=== PATIENT | female | born 1960 | race Caucasian/White ===

== ENCOUNTER → 2016-12-21 | Outpatient (CLI) | payer MEDICARE, MEDICAID ==
[~2016-12-21] MED LIST: CELEXA 20MG20 MG/TAB PO; CLEOCIN HC150 MG/CAP PO; CLEOCIN HCL300 MG PO; DIOVAN 40MG40 MG PO; FIORICET 325 MG1 TA1 PO; LANTUS100 U/ML SC; LYRICA 75MG CAP75 MG PO; MS CONTIN 330 MG/TAB PO; NORCO 325 MG-51 TAB PO; NORCO 325 MG-7.1 TAB PO; NOVOLOG 100U100 U/M1 SQ; PROAIR HFA0.09 MG/AC; TRADJENTA5 MG PO; XANAX 0.5MG0.5 MG PO; ZOCOR 10MG10 MG; ZOFRAN 4MG T4 MG/TAB PO
== END ==
LOC: COL.RAD 12-14 14:00
DX: M25.511 Pain in right shoulder (principal)

== ENCOUNTER → 2017-05-29 | Outpatient (CLI) | payer MEDICARE, MEDICAID | LOC: MHCPAIN 14:58 | DX: G89.29 Other chronic pain (principal); M47.27 Other spondylosis with radiculopathy, lumbosacral region; M53.3 Sacrococcygeal disorders, not elsewhere classified; F17.210 Nicotine dependence, cigarettes, uncomplicated | CPT/HCPCS: G0463 ==

== ENCOUNTER → 2017-06-20 | Outpatient (CLI) | payer MEDICARE, MEDICAID | LOC: MHCPAIN 14:22 | DX: G89.29 Other chronic pain (principal); M47.27 Other spondylosis with radiculopathy, lumbosacral region; M53.3 Sacrococcygeal disorders, not elsewhere classified; F17.210 Nicotine dependence, cigarettes, uncomplicated | CPT/HCPCS: G0463 ==

== ENCOUNTER → 2017-07-16 | Outpatient (CLI) | payer MEDICARE, MEDICAID | LOC: MHCPAIN 07-12 09:12 | DX: G89.29 Other chronic pain (principal); M47.27 Other spondylosis with radiculopathy, lumbosacral region; F17.210 Nicotine dependence, cigarettes, uncomplicated | CPT/HCPCS: G0463 ==

== ENCOUNTER → 2017-08-30 | Outpatient (CLI) | payer MEDICARE, MEDICAID | LOC: MHCPAIN 10:17 | DX: M47.27 Other spondylosis with radiculopathy, lumbosacral region (principal); M51.27 Other intervertebral disc displacement, lumbosacral region | CPT/HCPCS: J1100; J2250; J3010; Q9967 ==

== ENCOUNTER → 2017-09-21 | Outpatient (CLI) | payer MEDICARE, MEDICAID | LOC: MHCPAIN 11:44 | DX: G89.29 Other chronic pain (principal); M47.817 Spondylosis without myelopathy or radiculopathy, lumbosacral region; M54.16 Radiculopathy, lumbar region; M53.3 Sacrococcygeal disorders, not elsewhere classified | CPT/HCPCS: G0463 ==

== ENCOUNTER → 2017-09-27 | Outpatient (CLI) | payer MEDICARE, MEDICAID | LOC: MHCPAIN 13:27 | DX: M47.817 Spondylosis without myelopathy or radiculopathy, lumbosacral region (principal) | CPT/HCPCS: J1040; J2250; J3010; Q9967 ==

== ENCOUNTER → 2017-10-19 | Outpatient (CLI) | payer MEDICARE, MEDICAID | LOC: MHCPAIN 11:15 | DX: G89.29 Other chronic pain (principal); M47.817 Spondylosis without myelopathy or radiculopathy, lumbosacral region; M54.16 Radiculopathy, lumbar region; M53.3 Sacrococcygeal disorders, not elsewhere classified | CPT/HCPCS: G0463 ==

== ENCOUNTER → 2017-11-19 | Outpatient (CLI) | payer MEDICARE, MEDICAID | LOC: MHCPAIN 13:02 | DX: G89.29 Other chronic pain (principal); M47.817 Spondylosis without myelopathy or radiculopathy, lumbosacral region; M54.16 Radiculopathy, lumbar region; M53.3 Sacrococcygeal disorders, not elsewhere classified | CPT/HCPCS: G0463 ==

== ENCOUNTER → 2018-01-21 | Outpatient (CLI) | payer MEDICARE, MEDICAID | LOC: MHCPAIN 12:54 | DX: G89.29 Other chronic pain (principal); M47.817 Spondylosis without myelopathy or radiculopathy, lumbosacral region; M54.16 Radiculopathy, lumbar region; M53.3 Sacrococcygeal disorders, not elsewhere classified | CPT/HCPCS: G0463 ==

== ENCOUNTER → 2018-03-20 | Outpatient (CLI) | payer MEDICARE, MEDICAID | LOC: MHCPAIN 12:58 | DX: G89.29 Other chronic pain (principal); M47.817 Spondylosis without myelopathy or radiculopathy, lumbosacral region; M54.16 Radiculopathy, lumbar region; M53.3 Sacrococcygeal disorders, not elsewhere classified | CPT/HCPCS: G0463 ==

== ENCOUNTER → 2018-03-28 | Outpatient (CLI) | payer MEDICARE, MEDICAID | LOC: MHCPAIN 14:08 | DX: M54.16 Radiculopathy, lumbar region (principal); M47.817 Spondylosis without myelopathy or radiculopathy, lumbosacral region | CPT/HCPCS: J1040; J2250; J3010; Q9967 ==

== ENCOUNTER → 2018-05-07 | Outpatient (CLI) | payer MEDICARE, MEDICAID | LOC: MHCPAIN 13:14 | DX: G89.29 Other chronic pain (principal); M47.817 Spondylosis without myelopathy or radiculopathy, lumbosacral region; M54.16 Radiculopathy, lumbar region; M53.3 Sacrococcygeal disorders, not elsewhere classified | CPT/HCPCS: G0463 ==

== ENCOUNTER 2020-03-05 08:53 | Inpatient (IN) | payer MEDICARE, MEDICAID ==
[~2020-03-05] VITALS: Ht 172.7 cm; Wt 108.0 kg
[~2020-03-05 08:53] MED LIST changes: -NOVOLOG 100U100 U/M1 SQ; +NOVOLOG FLEX100 U/ML SQ
[2020-04-20] VITALS (12 sets, daily range): BP systolic 107–164; BP diastolic 52–79; PULSE 59–669; TEMP 97–100.2
[2020-04-20] MEDS ORDERED: BROVANA15 MCG/2 M IH (02:29)
[2020-04-20] MEDS ORDERED: LIORESAL 1010 MG/TAB PO (02:29)
[2020-04-20] MEDS ORDERED: PULMICORT R1 MG/2 ML IH (02:30)
[2020-04-20] MEDS ORDERED: CELEBREX 200MG200 MG PO (02:30)
[2020-04-20] MEDS ORDERED: CRESTOR 10MG10 MG PO (02:31)
[2020-04-20] MEDS ORDERED: DALIRESP500 MCG PO (02:32)
[2020-04-20] MEDS ORDERED: VALIUM 10MG10 MG/TAB PO (02:32)
[2020-04-20] MEDS ORDERED: DIOVAN 80MG80 MG PO (02:33)
[2020-04-20] MEDS ORDERED: FIORINAL W/CODE1 CA2 PO (02:34)
[2020-04-20] MEDS ORDERED: JARDIANCE25 PO (02:35)
[2020-04-20] MEDS ORDERED: TOPROL XL 25MG25 MG PO (02:36)
[2020-04-20] MEDS ORDERED: NORCO 325 MG-101 TAB PO (02:37)
[2020-04-20] MEDS ORDERED: TRESIBA FL200 UNIT/1 SQ (02:40)
[2020-04-20] MEDS ORDERED: DESYREL 100MG100 MG PO (02:40)
[2020-04-20] MEDS ORDERED: VASCEPA0.5 GM PO (02:42)
[2020-04-20] MEDS ORDERED: VENTOLIN0.09 MG IH (02:43)
[2020-04-20] MEDS ORDERED: B-12 500 MCG PO (02:44)
[2020-04-20] MEDS ORDERED: FIORICET 325 MG1 TA1 PO (02:46)
[2020-04-20] MEDS ORDERED: TYLENOL 325MG325 MG PO (02:52)
[2020-04-20] MEDS ORDERED: NOVOLOG FLEX100 U/ML SQ (05:59)
[2020-04-20] MEDS ORDERED: IRON TABLETS325 MG PO (06:05)
[2020-04-20] MEDS ORDERED: FOLIC ACID0.4 MG PO (06:05)
[2020-04-20] MEDS ORDERED: VITAMIN C500 MG PO (06:06)
[2020-04-20] MEDS ORDERED: MAGNESIUM ELEME30 MG PO (06:07)
[2020-04-20] MEDS ORDERED: CALCIUM CARBON650 M2 PO (06:07)
[2020-04-20] MEDS ORDERED: PHARMASSURE CHE30 MG PO (06:08)
--- NOTE | 2020-04-20 11:03 | NUR ---
PT TO ROOM 327 PER BED WITH REPORT FROM [facility] PACU @1000. PT A/O X3 VSS, LUNGS COARSE. BOWEL SOUNDS PRESENT. DRESSINGS TO LEFT KNEE CDI.
--- NOTE | 2020-04-20 11:30 | NUR ---
[employer] Mender met with the patient to complete initial intake. The patient lives in [place] with her , Carlyle. The patient has a cane, walker, and uses 2L of oxygen at night. [facility] supplies oxygen. The patient has services through [address] [place] [address]. They provide 12 hours a week for housework, transport, errands, bathing, and preparing meals. The patient does not have advanced directives in the EMR but states they are complete and designate, Carlyle. Her PCP should have a copy. The patient's PCP is Dr. Shreyas Gandara and patient receives medications from [facility]. The patient plans to return home at discharge and continue with [facility]. The patient is scheduled for three weeks of OP PT at [facility]. SW contacted Dr. Gandara's office to inquire about DPOA-HC paperwork. They do have it on file and will fax it to this SW. There are no additional needs at this time.
--- NOTE | 2020-04-20 14:39 | NUR ---
Follow up; [employer] Quality Control Technician offered prayer for Mary Alice's extreme pain. She states that her nurse already knows that her pain meds aren't working because of her resistance to them due to the meds she has had to take for pain for so long. Nurse is aware of situation.
--- NOTE | 2020-04-20 18:11 | NUR ---
PT STRUGGLING WITH PAIN. PT HAS RECIEVED PO AND IV MEDS THROUGH OUT [facility]. PT HAS NOT RATED PAIN UNDER 8/10 AMD HIGH 12/10. PT VOIDING UP TO BEDSIDE COMODE WITH ASSIST X2. ENCOURAGED PT TO WORK ON KEEPING LEG STRAIGHT. PT IS BENDING KNEE WHILE RESTING.
--- NOTE | 2020-04-20 18:46 | NUR ---
PT UP TO BSC. VOIDED AND RETURNED TO BED STILL RATING PAIN AT 8/10.
--- NOTE | 2020-04-20 20:40 | NUR ---
Pt. sitting up in bed at this time. Pt. is A&OX3, assessment complete. INT to rt. forearm patent. Dressing to rt. knee CDI. Pt. reports pain to rt. knee at a 8 on pain scale, gave pain meds per orders. Pt. denies further needs, call light within reach.
[2020-04-21] VITALS: BP 156/75; PULSE 88; TEMP 98.8
[2020-04-21 04:00] VITALS: BP 153/75; PULSE 76; TEMP 98.9
--- NOTE | 2020-04-21 07:15 | NUR ---
REPORT FROM [facility].
--- NOTE | 2020-04-21 07:41 | NUR ---
DR ANDRADE ROUNDED ON PT THIS AM. PT STILL STRUGGLING WITH PAIN CONTROLL. PRN MEDS GIVEN ORDERED FREQUENTLY NEEDED.
[2020-04-21 07:46] VITALS: BP 127/67; PULSE 80; TEMP 98.4
[2020-04-21 09:07] LABS: HEMOGLOBIN 12.1 g/dl (12.5-16.0)
[2020-04-21 09:08] LABS: HEMATOCRIT 36.5 % (37.0-47.0)
--- NOTE | 2020-04-21 09:53 | NUR ---
PT WORKED WITH THERAPY. AMBULATED TO END OF MANZANO WITH SLOW STEADY GAIT. OCCLUSIVE DRESSING CDI. PAIN 03/15. VSS.
[2020-04-21 11:41] VITALS: BP 124/72; PULSE 79; TEMP 98.7
--- NOTE | 2020-04-21 12:28 | NUR ---
DRESSING CHANGE COMPLETE. PT REPORTING PAIN @04/15. PRN PAIN MEDICTION GIVEN PER ORDERS.
[2020-04-21 16:09] VITALS: BP 127/66; PULSE 68; TEMP 98.7
[2020-04-21 20:20] VITALS: BP 133/97; PULSE 81; TEMP 99.3
--- NOTE | 2020-04-21 20:45 | NUR ---
Pt assessment completed and documented. Pt assisted back in bed at this time from sitting on the edge of her bed. Pt alert and oriented x4. Complaints of 10/10 pain to right inner knee that is sharp. PRN pain medication given per orders. INT to left hand CDI. HAN hose on per orders. Dressing to right knee CDI. Pt denies any other needs at this time. Call light within reach. Will continue to monitor.
[2020-04-22 00:53] VITALS: BP 133/66; PULSE 92; TEMP 99
[2020-04-22 04:30] VITALS: BP 125/60; PULSE 85; TEMP 98.5
--- NOTE | 2020-04-22 06:25 | NUR ---
Pt states this was the first time since surgery that she was able to get "good sleep". Complaints of poor pain control this AM. PRN tramadol given per orders. Pt states if she does not get her "real pain medication" by 0800 or 0830, she was going to leave AMA because she could have her here and be at home taking it by that time. Pt denies any other needs at this time. Call light within reach
[2020-04-22] MEDS ORDERED: ASPI325T6 PO (06:36)
[2020-04-22] MEDS ORDERED: NORCO 325 MG-101 TAB PO (06:37)
[2020-04-22] MEDS ORDERED: ROXICODONE 55 MG/TAB PO (06:38)
[2020-04-22] MEDS ORDERED: SENOKOT S 50 MG1 TAB PO (06:39)
[2020-04-22 07:24] VITALS: BP 137/67; PULSE 98; TEMP 98.3
--- NOTE | 2020-04-22 08:00 | NUR ---
PATIENT IS A&O AND PLANNING ON DISCHARGING HOME AFTER AM THERAPY. ORTHO DISCHARGE ORDERS ALREADY IN. GAVE PRN NORCO, TWO TABS FOR PAIN IN RLE. RTK DRESSING IS CD&I WITH AQUACEL. TEDS TO BLE. POSITIVE PEDAL PULSES TO BLE. PATIENT EAT/DRINK/VOIDING SUFFICENT AMOUNTS. NURSING DISCUSSED PLAN FOR PAIN MEDICATIONS TODAY AND WROTE TIME ON BOARD. PATIENT REPORTS SHE HAS A LONG HX OF NARCOTIC USE FOR CHRONIC PAIN AND HAS A HIGH TOLERANCE. PATIENT VERBALIZED UNDERSTANDING OF PAIN PLAN. STUDENT NURSE ALSO WORKING WITH PATIENT TODAY, SEE STUDENT NOTES. HEAD TO TOE ASSESSMENT WNL. NO OTHER NEEDS. BREAKFAST TRAY AT BEDSIDE.
--- NOTE | 2020-04-22 09:15 | NUR ---
Aquacel dressing change on Right knee. Site was clean, dry, and intact. Patient tolerated well.
--- NOTE | 2020-04-22 09:15 | NUR ---
Follow-up visit; Patient thanked Science Teacher for stopping and wishing her well as she departs the hospital.
--- NOTE | 2020-04-22 10:35 | NUR ---
PATIENT DISCHARGING HOME AFTER AM THERAPY. GAVE PRN ROXICODONE, TWO TABS BEFORE THERAPY AND DISCHARGE. PATIENT EXCITED TO GO HOME. NEW AQUACEL APPLIED TO RIGHT KNEE BEFORE DISCHARGE IT WAS STARTING TO [place]EL AFTER HER SHOWER TODAY. GAVE DISCHARGE INSTRUCTIONS, PRESCRIPTIONS SENT ELECTRONICALLY TO PHARMACY, AND DISCUSSED F/U APTS. ANSWERED ALL QUESTIONS/CONCERNS. SENT HOME PERSONAL BELONGINGS. PATIENT ESCORTED OUT VIA WC TO PERSONAL VEHICLE WITH .
== END 2020-04-22 10:35 | disposition home or self-care (01) | DRG 470 ==
LOC: JCC 04-20 05:27
PROVIDERS: ADMIT Orthopaedic Surgery
PROC: 0SRC0J9 Replacement of Right Knee Joint with Synthetic Substitute, Cemented, Open Approach (ICD-10-PCS; principal; 2020-04-20 07:30)
DX: M17.11 Unilateral primary osteoarthritis, right knee (principal); E11.42 Type 2 diabetes mellitus with diabetic polyneuropathy; J44.9 Chronic obstructive pulmonary disease, unspecified; I10 Essential (primary) hypertension; F41.9 Anxiety disorder, unspecified; E66.9 Obesity, unspecified; Z68.36 Body mass index [BMI] 36.0-36.9, adult; Z79.891 Long term (current) use of opiate analgesic; Z85.43 Personal history of malignant neoplasm of ovary; Z95.0 Presence of cardiac pacemaker; Z88.0 Allergy status to penicillin; Z88.6 Allergy status to analgesic agent; Z90.710 Acquired absence of both cervix and uterus
CPT/HCPCS: A9284; C1776; J1815; J2250; J2270; J2370; J2405; J2704; J3010; J7030; J7050